=== PATIENT | female | born 1995 | race Two or more races ===

== ENCOUNTER 2022-10-03 01:43 | Emergency (ER) | payer OTHER ==
[~2022-10-03] VITALS: Ht 162.6 cm; Wt 86.2 kg
== END 2022-10-03 03:55 | disposition home or self-care (01) ==
LOC: ER 01:43
DX: S93.492A Sprain of other ligament of left ankle, initial encounter (principal); Y93.9 Activity, unspecified; W18.39XA Other fall on same level, initial encounter; Y92.9 Unspecified place or not applicable; Y99.9 Unspecified external cause status; Z88.8 Allergy status to other drugs, medicaments and biological substances

== ENCOUNTER → 2023-04-05 | Emergency (ER) | payer OTHER ==
[~2023-04-05] VITALS: Ht 162.6 cm; Wt 88.9 kg
[~2023-04-05] MED LIST: DESMOPRESS10 MCG/0.2 NS; FERRO-TIME325 MG PO
== END | disposition left against medical advice (07) ==
LOC: ER 19:40
DX: Z53.21 Procedure and treatment not carried out due to patient leaving prior to being seen by health care provider (principal)